=== PATIENT | male | born 1960 | race Caucasian/White ===

== ENCOUNTER 2024-08-28 07:28 | Emergency (ER) | payer MEDICAID ==
[~2024-08-28] VITALS: Ht 170.2 cm; Wt 77.1 kg
[2024-08-28 07:59] LABS: BASOPHILS # (AUTO) 0.1 K/uL (0.0-0.2); EOSINOPHILS % (AUTO) 0.4 % (0.0-6.0); HEMATOCRIT 43 % (39-51); HEMOGLOBIN 14.4 g/dL (13.5-17.5); LYMPHOCYTES # (AUTO) 0.4 K/uL (0.8-4.8); LYMPHOCYTES % (AUTO) 6.7 % (20.0-44.0); MEAN CORPUSCULAR HEMOGLOBIN 27 PG (26.0-33.0); MEAN CORPUSCULAR HGB CONC 34 g/dl (31.0-36.0); MEAN CORPUSCULAR VOLUME 81 fL (80-96); MONOCYTES # (AUTO) 0.6 K/uL (0.1-1.30); MONOCYTES % (AUTO) 10.6 % (2.0-12.0); NEUTROPHILS # (AUTO) 4.9 K/uL (1.8-8.9); NEUTROPHILS % (AUTO) 81.3 % (43.0-81.0); PLATELET COUNT (AUTO) 171 K/uL (150-450); RED BLOOD CELL COUNT(AUTO) 5.28 MIL/uL (4.5-6.0); RED CELL DISTRIBUTION WIDTH 14.7 % (11.5-15.0)
[2024-08-28] MEDS ORDERED: KETOROLAC TROMETHAMINE 15 MG/ML VIAL ONE (08:02)
[2024-08-28 08:06] LABS: CALCIUM, SERUM 8.8 mg/dL (8.5-10.1); CARBON DIOXIDE 26 mmol/L (21-32); CHLORIDE 101 mmol/L (98-107); CREATININE 0.7 mg/dL (0.6-1.3); GLUCOSE 132 mg/dL (74-106); POTASSIUM 3.9 mmol/L (3.5-5.1); SODIUM SERUM 135 mmol/L (136-145); UREA NITROGEN, BLOOD 7 mg/dL (7-18)
[2024-08-28] MEDS: KETOROLAC TROMETHAMINE 15 MG/ML VIAL IV ONE (08:11)
[2024-08-28] MEDS ORDERED: ALBU18HF2 INH (10:34)
[2024-08-28] MEDS ORDERED: OSEL75CA PO (10:34)
[2024-08-28] MEDS ORDERED: ACETAMINOPHEN ES 500 MG TABLET ONE (11:12)
[2024-08-28] MEDS: ACETAMINOPHEN ES 500 MG TABLET PO ONE (11:14)
[2024-08-28 11:39] VITALS: BP 140/89; TEMP 97.9; O2SAT 98
== END 2024-08-28 11:40 | disposition home or self-care (01) ==
LOC: ER 07:32
DX: J11.1 Influenza due to unidentified influenza virus with other respiratory manifestations (principal); R07.89 Other chest pain; I10 Essential (primary) hypertension; Z87.891 Personal history of nicotine dependence; Z20.822 Contact with and (suspected) exposure to COVID-19
CPT/HCPCS: 99285; 96374; 71045; 87426; 93005; 87804 ×2; 85025; 80048; 36415; 84484; J1885

== ENCOUNTER → 2025-07-03 | Emergency (ER) | payer MEDICAID, OTHER ==
[~2025-07-03] VITALS: Ht 172.7 cm; Wt 74.8 kg
[~2025-07-03] MED LIST: ACETAMINOPHEN 325 MG TABLET PO PRN; ALBU18HF2 INH; ALBUTEROL FS 2.5 MG/0.5 ML VIAL.NEB ONE; ALBUTEROL FS 2.5 MG/3 ML VIAL.NEB NEB PRN; AMLO-212 PO; CEFTRIAXONE 1 G in IV D5W 50 ML IV SCH; CEFTRIAXONE 1GM BAG (ER ONLY) 50 ML IV ONE; CLON0.1T PO; CT SWABBABLE VALVE TRANS SET 1 EA INFUS.SET MC ONE; CYCL5TAB PO; DOXYCYCLINE 100 MG VIAL ONE; DOXYCYCLINE 100 MG in IV D5W 100 ML IV SCH; ENOXAPARIN SODIUM 40 MG/0.4 ML DISP.SYRIN SQ SCH; GABA-536 PO; HYDR-500 PO; IOHEXOL-350 100 ML VIAL IV ONE; IPRATROPIUM NEB FS 0.5 MG/2.5 ML AMPUL.NEB NEB PRN; IPRATROPIUM NEB FS 0.5 MG/2.5 ML AMPUL.NEB ONE; IV NS 0.9% 1,000 ML IV PRN; IV NS 0.9% 250 ML IV ONE; MAG HYDROX/AL HYDROX/SIMETH 30 ML UDC PO PRN; MAGNESIUM HYDROXIDE 30 ML UDC PO PRN; Magnesium 1GM/D5W 100ML PREMIX 100 ML IV ONE; ONDANSETRON HCL/PF 4 MG/2 ML VIAL IVP PRN; OSEL75CA PO; PANTOPRAZOLE 40 MG VIAL IV SCH; POTASSIUM CL. PREMIX PERIPHER. 50 ML IV SCH; QUET50TA PO; SULF1TAB48 PO; TRAZ-182 PO
[2025-07-03] MEDS: ALBUTEROL FS 2.5 MG/0.5 ML VIAL.NEB NEB STA (05:04)
[2025-07-03] MEDS: IPRATROPIUM NEB FS 0.5 MG/2.5 ML AMPUL.NEB NEB STA (05:04)
[2025-07-03 05:09] LABS: CALCIUM, SERUM 9.2 mg/dL (8.5-10.1); CREATININE 0.8 mg/dL (0.6-1.3); SODIUM SERUM 144 mmol/L (136-145); UREA NITROGEN, BLOOD 13 mg/dL (7-18)
[2025-07-03] MEDS: CEFTRIAXONE 1 G in IV D5W 50 ML IV ONE (05:10)
[2025-07-03] MEDS: Magnesium 1GM/D5W 100ML PREMIX 100 ML IV STA (05:13)
[2025-07-03 05:14] LABS: ALCOHOL, BLOOD < 3 mg/dL (0-10); ASPARTATE AMINOTRANSFERASE 15 U/L (15-37); TOTAL PROTEIN, SERUM 8.2 g/dL (6.4-8.2)
[2025-07-03 05:18] LABS: LACTIC ACID 2.1 mmol/L (0.4-2.0)
[2025-07-03] MEDS: DOXYCYCLINE 100 MG in IV D5W 100 ML IV STA (05:21)
[2025-07-03 05:44] LABS: PLATELET COUNT (AUTO) 234 K/uL (150-450); RED BLOOD CELL COUNT(AUTO) 5.89 MIL/uL (4.5-6.0); RED CELL DISTRIBUTION WIDTH 14.2 % (11.5-15.0); WHITE BLOOD COUNT (AUTO) 8.7 K/uL (4.3-11.0)
[2025-07-03 06:04] LABS: ABG BASE EXCESS 0.8 mmol/L (-2.0-3.0); ABG OXYGEN SATURATION 79.2 % (94.0-98.0); ABG PCO2 59.7 mmHg (35.0-48.0); ABG PH 7.302 (7.350-7.450); ABG PO2 45.1 mmHg (83.0-108.0); ABG TOTAL HEMOGLOBIN 16.0 G/dL (13.5-17.5); FLOW, BLOOD GAS 4.00 L/min (0.00-30.00); FRACTIONATED INSPIRED OXYGEN 36.0 %; SITE, ABG LEFT RADIAL
[2025-07-03 07:34] LABS: INR 1.0 (0.91-1.10)
[2025-07-03 08:19] LABS: LACTIC ACID REFLEX 3.3 mmol/L (0.4-1.9)
[2025-07-03 10:00] VITALS: BP 128/84; TEMP 97.9; O2SAT 100
== END | disposition left against medical advice (07) ==
LOC: ER 04:40
DX: R09.02 Hypoxemia (principal); R41.82 Altered mental status, unspecified; J45.909 Unspecified asthma, uncomplicated; R06.02 Shortness of breath; I10 Essential (primary) hypertension; Z20.822 Contact with and (suspected) exposure to COVID-19
CPT/HCPCS: 99291; 96365; 96368; 93005; 82803; 87804 ×2; 71045; 70450; 71275; 82248; 84145; 85025; 83605 ×2; 83735; 85610; 36415; 80053; 84484; 83880; 86140; 36600; 93970; 94660; 94640; 87426; 80320; J3490 ×2; J7512; J0696 ×2; J7060 ×3; J7050; J3475; Q9967; G0480